=== PATIENT | female | born 1965 | race Caucasian/White ===

== ENCOUNTER → 2016-08-16 | Outpatient (CLI) | payer BC ==
--- NOTE | ~2016-08-16 | MY11 ---
[facility] A Service of [facility] RADIOLOGY TEXT RESULTS PATIENT: HAI VAZQUEZ LOCATION: [facility] : 67 UNIT #: [id number] AGE: [address]: ANNIE PROCTOR APRN SEX: F ORDER DR: [id number] [facility] [address]. [place], [place] [address] [id number] O MR#: [id number] Acc #: [id number] NAME: HAI VAZQUEZ : 1965 SEX: F STUDY DATE/TIME: 08/16/2016 14:28 UNIT: CGUS ROOM: STUDY DESCRIPTION: MY Mammogram Screening Dig Aditya Attending Physician: Annie Proctor Aprn Referring Physician: Annie Proctor Aprn Ordering Physician: Annie Proctor Aprn Primary Care Physician: Annie Proctor Aprn MEDICAL IMAGING REPORT This report is preliminary unless electronic signature is present EXAM Digital screening mammogram, 08/16/2016, [facility]. HISTORY 51-year-old woman baseline mammogram. No risk elevation. COMPARISON None. TECHNIQUE Digital imaging of each breast was completed utilizing screening protocol. Mole markers were placed on each breast. Review includes FDA-approved CAD device. FINDINGS Breast parenchyma is predominantly fatty replaced bilaterally. I see no dominant mass or suspicious mass characteristics. There are no microcalcifications and no architectural deformity. IMPRESSION Negative baseline mammogram. Annual screening recommended. Patients over the age of 40 are entered into a reminder system with target due date for the next mammogram. A result letter will also be sent to the patient. BIRADS: 1 Negative Dictated by... Binh Soto M.D. [facility] A Service [facility] RADIOLOGY TEXT RESULTS PATIENT: HAI VAZQUEZ LOCATION: [facility] : 67 UNIT #: [id number] AGE: [address]: ANNIE PROCTOR APRN SEX: F ORDER DR: THIS IS AN ELECTRONICALLY VERIFIED REPORT Binh Soto M.D. at 08/16/2016 3:42 PM Aryan TD: 08/16/2016 15:13 JOB #: [id number] MEDICAL IMAGING REPORT Page 1 of 1 COPY
--- NOTE | ~2016-08-16 | US49 ---
[facility] A Service of [facility] RADIOLOGY TEXT RESULTS PATIENT: HAI VAZQUEZ LOCATION: [facility] : 67 UNIT #: [id number] AGE: [address]: ANNIE PROCTOR APRN SEX: F ORDER DR: [id number] [facility] [address] [place], [place] [address] [id number] O MR#: [id number] Acc #: [id number] NAME: HAI VAZQUEZ : 1965 SEX: F STUDY DATE/TIME: 08/16/2016 13:49 UNIT: CGUS ROOM: STUDY DESCRIPTION: US Extremity Non Vasc Complete Attending Physician: Annie Proctor Aprn Referring Physician: Annie Proctor Aprn Ordering Physician: Annie Proctor Aprn Primary Care Physician: Annie Proctor Aprn MEDICAL IMAGING REPORT This report is preliminary unless electronic signature is present EXAM Targeted right ankle soft tissue ultrasound DATE 08/16/2016 HISTORY Growing palpable abnormality of the anterior right ankle for 3 weeks. No pain. No known injury. COMPARISON None. FINDINGS Targeted soft tissue ultrasound was performed at the site of patient's palpable complaint. Anterior to the right ankle, there is a thin elongated fluid collection measuring nearly 3 cm in thickness, and more focally in the transverse plane 1.8 x 0.8 cm. There may be an eccentric soft tissue component within this collection, which measures about 8 x 5 mm. This is thought to correspond to the patient's area of palpable complaint. Contralateral imaging was performed of the left ankle, and a smaller fluid collection is seen anteriorly at that location also with a nodular soft tissue component measuring 5 x 7 mm. IMPRESSION Nonspecific thin elongated fluid collection anterior to the right ankle, with more focal 8 x 5 mm solid nodular component imbedded within this collection. Dedicated MRI of the right ankle would be recommended for further evaluation. Dictated by... Becky Murray M.D. [facility] A Service [facility] RADIOLOGY TEXT RESULTS PATIENT: HAI VAZQUEZ LOCATION: [facility] : 67 UNIT #: [id number] AGE: [address]: ANNIE PROCTOR APRN SEX: F ORDER DR: THIS IS AN ELECTRONICALLY VERIFIED REPORT Becky Murray M.D. at 08/18/2016 7:14 AM LIZETTE/cindi TD: 08/16/2016 15:29 JOB #: [id number] MEDICAL IMAGING REPORT Page 1 of 1 COPY
== END | disposition home or self-care (01) ==
LOC: CGUS 13:13
DX: Z12.31 Encounter for screening mammogram for malignant neoplasm of breast (principal); R22.9 Localized swelling, mass and lump, unspecified; S99.919A Unspecified injury of unspecified ankle, initial encounter; R22.41 Localized swelling, mass and lump, right lower limb
CPT/HCPCS: 76881; G0202

== ENCOUNTER → 2016-09-04 | Outpatient (CLI) | payer BC ==
--- NOTE | ~2016-09-04 | MR11 ---
[facility] A Service of [facility] & [facility] RADIOLOGY TEXT RESULTS PATIENT: HAI VAZQUEZ LOCATION: [facility] : 67 UNIT #: [id number] AGE: [address]: ANNIE PROCTOR APRN SEX: F ORDER DR: [id number] [address] [address] [id number] O MR#: [id number] Acc #: [id number] NAME: HAI VAZQUEZ : 1965 SEX: F STUDY DATE/TIME: 09/04/2016 8:52 UNIT: [facility] ROOM: STUDY DESCRIPTION: MR Ankle Wo Contrast Rt Attending Physician: Annie Proctor Aprn Referring Physician: Annie Proctor Aprn Ordering Physician: Annie Proctor Aprn Primary Care Physician: Annie Proctor Aprn MRI CENTER REPORT This report is preliminary unless electronic signature is present. EXAM Right ankle and hindfoot without contrast, 09/04/16 COMPARISON STUDIES Targeted right ankle soft tissue ultrasound 08/16/16 HISTORY Order states soft tissue injury of ankle, soft tissue swelling. History sheet states no known injury and no surgery. Marker placed at site of soft tissue swelling anteriorly which has been present for 5 weeks. No wound, redness or bruising. FINDINGS Corresponding roughly to the area of clinical concern is elongated slightly complex signal fluid distension on the tibialis anterior tendon sheath measuring nearly 4 cm in length x 1.9 cm in transverse dimension. Sagittal images suggest even more cranial extent of the process to a lesser degree for a total length of 7.6 cm. The distended fluid sheath demonstrates internal septations and probable synovial proliferation. There is mild anterior subcutaneous inflammation. Findings are compatible with tenosynovitis. There is mild tibialis anterior tendinosis without a tear. The tenosynovitis can be reactive to the tendinosis, with the possibility of tenosynovitis as a manifestation of a systemic inflammatory arthropathy (including rheumatoid arthritis) is possible. The remainder of the tendon sheaths are normal. Contrast was not administered to assist for the degree of true fluid versus synovial proliferative abnormality. The tibiotalar joint is normal. [facility] A Service of [facility] & [facility] RADIOLOGY TEXT RESULTS PATIENT: HAI VAZQUEZ LOCATION: [facility] : 67 UNIT #: [id number] AGE: [address]: ANNIE PROCTOR APRN SEX: F ORDER DR: There is a small amount of fluid in the posterior subtalar joint recess. The ankle ligaments and tendons are otherwise normal. Sinus tarsi and tarsal tunnel are normal. There is no bony abnormality. No marrow lesion or fracture is seen. Midfoot is normal. Tibialis anterior tendon insertions at the dorsal midfoot are intact. There is no muscle atrophy. IMPRESSION 1. Nonenhanced MR of the right ankle and hindfoot demonstrates long segment abnormal signal distension of the tibialis anterior tendon sheath compatible with fluid and probable synovial proliferative abnormality and/or internal septations. Findings are compatible with tibialis anterior tenosynovitis. There is mild adjacent anterior subcutaneous inflammation. 2. There is mild tibialis anterior tendinosis without a tear. No additional ankle/hindfoot tenosynovitis is noted, although the tenosynovitis could be reactive to the tendinosis. The possibility of a focal manifestation of a systemic disorder such as inflammatory arthritis (including rheumatoid) cannot be excluded. Correlate clinically regarding the need for further clinical workup. 3. The exam is otherwise unremarkable. Dictated by... Rosalee Mulligan M.D. THIS IS AN ELECTRONICALLY VERIFIED REPORT Rosalee Mulligan M.D. at 09/06/2016 8:31 AM ELISA/chapito TD: 09/05/2016 14:15 JOB #: [id number] MRI CENTER REPORT Page 1 of 1
== END | disposition home or self-care (01) ==
LOC: SMRI 08:45
DX: S99.911A Unspecified injury of right ankle, initial encounter (principal); M79.89 Other specified soft tissue disorders; M19.071 Primary osteoarthritis, right ankle and foot
CPT/HCPCS: 73721